=== PATIENT | female | born 1975 | race Caucasian/White ===

== ENCOUNTER 2023-05-17 03:11 | Emergency (ER) | payer OTHER ==
[~2023-05-17] VITALS: Ht 157.5 cm; Wt 70.0 kg
[2023-05-17 03:23] VITALS: BP 132/82; PULSE 88; RESP 16; TEMP 98.3; O2SAT 100
== END 2023-05-17 04:24 | disposition left against medical advice (07) ==
LOC: ER 03:11
DX: Z53.21 Procedure and treatment not carried out due to patient leaving prior to being seen by health care provider (principal)
CPT/HCPCS: 99281

== ENCOUNTER 2023-05-18 21:25 | Emergency (ER) | payer OTHER ==
[~2023-05-18] VITALS: Ht 157.5 cm; Wt 69.6 kg
[2023-05-18 21:44] VITALS: BP 153/90; O2SAT 100
[2023-05-18 22:28] LABS: BASOPHILS % 0.5 % (0.0-2.0); EOSINOPHILS % 3.9 % (0.0-5.0); HEMATOCRIT. 32.4 % (36.0-48.0); HEMOGLOBIN. 10.4 g/dL (12.0-16.0); LYMPHOCYTES % 28.7 % (20.0-50.0); MEAN CORPUSCULAR HEMOGLOBIN 25.3 pg (28.0-32.0); MEAN PLATELET VOLUME 7.9 fl (7.4-10.4); MONOCYTES % 9.8 % (2.0-8.0); NEUTROPHILS % 57.1 % (40.0-76.0); PLATELET 439 x1000/uL (130-400); RED CELL DISTRIBUTION WIDTH 16.8 % (11.6-14.6)
[2023-05-18 22:32] LABS: CHLORIDE 105 mEq/L (98-107)
[2023-05-19] MEDS ORDERED: IBUP-2028 MT (03:43)
[2023-05-19] MEDS ORDERED: TOPUD PO (03:43)
[2023-05-19 04:00] VITALS: PULSE 92; RESP 16; TEMP 98.1
== END 2023-05-19 04:00 | disposition home or self-care (01) ==
LOC: ER 21:25
DX: M79.89 Other specified soft tissue disorders (principal); I49.9 Cardiac arrhythmia, unspecified; Z88.9 Allergy status to unspecified drugs, medicaments and biological substances; Z98.890 Other specified postprocedural states; Z98.51 Tubal ligation status
CPT/HCPCS: 36415; 71045; 80053; 81025; 83880; 84484; 85025; 93005; 99285